=== PATIENT | female | born 1950 ===

== ENCOUNTER 2024-09-12 08:15 | Outpatient (CLI) | payer OTHER ==
[~2024-09-12 08:15] MED LIST: CYMBALTA60 MG; FLEXERIL10 MG PO; KETO10TA2 PO; LIPITOR20 MG PO; MEDROL PO; ORPH100T PO; PREDNISONE5 MG/DOSE- PO; SYNTHROID50 MCG PO
== END 2024-09-12 08:19 | disposition home or self-care (01) ==
LOC: NUCLEAR 08:15
PROVIDERS: ATTEND Psychiatry & Neurology Clinical Neurophysiology
DX: F03.90 Unspecified dementia, unspecified severity, without behavioral disturbance, psychotic disturbance, mood disturbance, and anxiety (principal)